=== PATIENT | female | born 1935 | race Caucasian/White ===

== ENCOUNTER 2018-05-08 09:02 | Inpatient (IN) | payer OTHER, MEDICARE ==
--- NOTE | ~2018-05-08 | EKG ---
[address] [address] ELECTROCARDIOGRAM REPORT Name: MERARY VAUGHN Room #: 429-[facility] IN M.R.#: [id number] Admission: 05/08/18 Attend Phys: Sahil Clarke MD Discharge: 05/13/18 Date of : 31 Report #: [id number] THIS REPORT FOR: //name// [facility] Test Date: 2018-05-09 Test Time: 12:48:39 Pat Name: MERARY VAUGHN Department: Room: 429 Gender: F Roll Scale Man: BS : 1935 Requested By: Sarthak Dejesus Order Number: [id number] MD: Pablo Bishop Measurements Intervals [place] Rate: 84 P: 19 NH: 123 QRS: -33 QRSD: 91 T: 17 QT: 416 QTc: 492 Interpretive Statements Sinus rhythm Left axis deviation Low voltage, extremity and precordial leads No previous ECG available for comparison Electronically Signed On 05-16-2018 14:14:06 CDT by Pablo Bishop [email or web address] <ELECTRONICALLY SIGNED> By: Pablo Bishop MD 05/16/18 1414 1248 1248 Pablo Bishop MD /LOGAN
--- NOTE | ~2018-05-08 | P ---
[facility] [place] [address] PROCEDURE REPORT Name: MERARY VAUGHN Room #: 429-P ADM IN M.R.#: [id number] Admission: 05/08/18 Attend Phys: Sahil Clarke MD Discharge: Date of : 31 Report #: [id number] THIS REPORT FOR: //name// CC: Sahil PENNY unknown DATE OF SERVICE: 05/12/2018 PROCEDURE PERFORMED: ERCP with sphincterotomy and stone removal. HISTORY OF PRESENT ILLNESS: The patient is an 82-year-old female who was admitted for abdominal pain. She has a history of significant Alzheimer's dementia. Ultrasound showed cholelithiasis with mild gallbladder and extrahepatic bile duct dilation. The patient underwent an MRCP on 05/09/2018, which showed multiple filling defects within the common bile duct suggesting duct stones. The patient's liver function tests today, AST 43, total bili is 0.8, although it was 1.1 on May 09, alkaline phosphatase 318, ALT is 93. Her white blood cell count is 11.1, hemoglobin 9.0. The patient is currently on Zosyn as well as other medications. Plan is for ERCP. PROCEDURE: The risks and benefits of the procedure were explained to the patient's , those risks including, but not limited to bleeding, perforation, the risk of sedation as well as a potential risk for post-ERCP pancreatitis. He understood these risks and gave informed consent. The procedure was performed under general anesthesia in the interventional radiology suite. The patient again is already on IV Zosyn at this time. She was also given 150 mg indomethacin rectal suppository prior to the procedure. Next, using a standard Olympus ERCP side-viewing scope, the scope was placed in the patient's mouth and advanced under direct vision through the esophagus, stomach and into the second portion of the duodenum. The major papilla was identified, which was normal; however, it was next to a large duodenal diverticulum. Next, using a Cesar-Cook 0.025 dome-tipped sphincterotome, initially the pancreatic duct was cannulated. Next, the common bile duct was cannulated. There were several small filling defects noted. The common bile duct was dilated to approximately 10-11 mm. Initially, the intra-hepatics did not fill. At this point, a guidewire was advanced into the intrahepatic ducts. Next, I performed a large sphincterotomy without difficulty. The sphincterotome was then removed and a balloon catheter was then advanced over the wire into the common bile duct. A balloon occlusion cholangiogram did show filling defects within the mid to distal common bile duct. Next, multiple sweeps were performed. On the first balloon sweep, several stones with a large amount of debris were removed; on subsequent sweeps, no further stones or significant debris was removed afterwards. After several balloon sweeps, we then obtained another balloon occlusion cholangiogram, intra-hepatics appeared normal, the cystic duct did [address] [address] PROCEDURE REPORT Name: MERARY VAUGHN Room #: 429-P [facility] IN M.R.#: [id number] Admission: 05/08/18 Attend Phys: Sahil Clarke MD Discharge: Date of : 31 Report #: [id number] fill, the common bile duct showed no further filling defects at this point. At this point, the wire and the balloon were removed. The scope was then withdrawn and the procedure terminated. The patient tolerated the procedure well. IMPRESSION: 1. Common bile duct stone, status post ERCP with sphincterotomy and stone and debris removal today as described above. 2. Duodenal diverticulum. RECOMMENDATIONS: 1. Observe the patient post procedure. 2. Continue to monitor liver function tests. Thank you for allowing me to participate in her care. <ELECTRONICALLY SIGNED> By: Boris Goodson MD 05/12/18 1725 1235 1313 Boris Goodson MD /nt
[2018-05-08 17:08] VITALS: BP 162/90
[2018-05-08 19:42] VITALS: BP 179/97
[2018-05-09 01:52] VITALS: BP 118/74
[2018-05-09 04:59] VITALS: BP 135/104
[2018-05-09 06:20] LABS: ABSOLUTE NEUTROPHILS 9.3 thou/uL (1.4-8.2); BASOPHILS 0.3 % (0.0-2.0); EOSINOPHILS 0.8 % (0.0-3.0); HEMATOCRIT 28.9 % (37.0-47.0); HEMOGLOBIN 9.3 gm/dL (12.0-15.0); LYMPHOCYTES 6.8 % (24.0-44.0); MCH 26.6 pg (26.0-34.0); MCV 83.1 fL (80.0-100.0); PLATELET COUNT 485 thou/uL (150-400); POLYS 87.1 % (36.0-66.0); RBC 3.48 mil/uL (4.20-5.00); RDW 21.2 % (10.5-14.5); WBC 10.7 thou/uL (4.0-11.0)
[2018-05-09 06:35] LABS: ALBUMIN 2.2 g/dL (3.4-5.0); CALCIUM 8.4 mg/dL (8.5-10.1); CREATININE 0.8 mg/dL (0.6-1.0); MAGNESIUM 2.1 mg/dL (1.8-2.4); POTASSIUM 3.6 mmol/L (3.5-5.1); TOTAL BILIRUBIN 1.1 mg/dL (<0.1-1.0); TOTAL PROTEIN 6.6 g/dL (6.4-8.2)
[2018-05-09 07:13] VITALS: BP 159/87
[2018-05-09 07:38] LABS: ANISOCYTOSIS 1+; HYPOCHROMASIA SLIGHT; POIKILOCYTOSIS SLIGHT; POLYCHROMASIA SLIGHT
[2018-05-09 07:39] LABS: PLATELET ESTIMATE INCREASED
[2018-05-09] MEDS ORDERED: FERROUS SULFAT325 MG PO (08:16)
[2018-05-09] MEDS ORDERED: MIRALAX17 GM PO (08:18)
[2018-05-09] MEDS ORDERED: MILK OF MA2400 MG/10 PO (08:18)
[2018-05-09] MEDS ORDERED: NEURONTIN 400400 M1 PO (08:20)
[2018-05-09] MEDS ORDERED: EVAC-U-GEN8.6 MG PO (08:20)
[2018-05-09] MEDS ORDERED: TYLENOL325 MG PO (08:21)
[2018-05-09] MEDS ORDERED: TYLENOL EXTRA500 MG PO (08:21)
[2018-05-09 15:43] VITALS: BP 162/132
[2018-05-09 21:00] VITALS: BP 168/83
[2018-05-10 04:21] VITALS: BP 135/103
[2018-05-10 06:28] LABS: ABSOLUTE NEUTROPHILS 8.8 thou/uL (1.4-8.2); BASOPHILS 0.5 % (0.0-2.0); EOSINOPHILS 0.5 % (0.0-3.0); HEMATOCRIT 29.1 % (37.0-47.0); HEMOGLOBIN 9.3 gm/dL (12.0-15.0); LYMPHOCYTES 7.6 % (24.0-44.0); MCH 26.5 pg (26.0-34.0); MCV 82.6 fL (80.0-100.0); MONOCYTES 5.2 % (1.0-8.0); PLATELET COUNT 534 thou/uL (150-400); POLYS 86.2 % (36.0-66.0); RBC 3.52 mil/uL (4.20-5.00); RDW 21.1 % (10.5-14.5); WBC 10.2 thou/uL (4.0-11.0)
[2018-05-10 06:37] LABS: CALCIUM 8.1 mg/dL (8.5-10.1); CREATININE 0.7 mg/dL (0.6-1.0); POTASSIUM 3.4 mmol/L (3.5-5.1)
[2018-05-10 07:45] VITALS: BP 107/83
[2018-05-10 09:50] LABS: ALBUMIN 2.1 g/dL (3.4-5.0); CREATININE 0.7 mg/dL (0.6-1.0); POTASSIUM 3.3 mmol/L (3.5-5.1); TOTAL BILIRUBIN 0.7 mg/dL (<0.1-1.0); TOTAL PROTEIN 6.3 g/dL (6.4-8.2)
[2018-05-10 16:00] VITALS: BP 177/122
[2018-05-10 20:00] VITALS: BP 166/92
[2018-05-11 05:00] VITALS: BP 187/117
[2018-05-11 06:20] LABS: ABSOLUTE NEUTROPHILS 9.9 thou/uL (1.4-8.2); BASOPHILS 0.3 % (0.0-2.0); EOSINOPHILS 0.3 % (0.0-3.0); HEMATOCRIT 30.5 % (37.0-47.0); HEMOGLOBIN 9.6 gm/dL (12.0-15.0); LYMPHOCYTES 6.6 % (24.0-44.0); MCH 25.8 pg (26.0-34.0); MCHC 31.5 g/dL (28.0-37.0); MCV 81.9 fL (80.0-100.0); MONOCYTES 6.8 % (1.0-8.0); PLATELET COUNT 569 thou/uL (150-400); RBC 3.72 mil/uL (4.20-5.00); RDW 21.2 % (10.5-14.5); WBC 11.5 thou/uL (4.0-11.0)
[2018-05-11 06:36] LABS: CALCIUM 8.2 mg/dL (8.5-10.1); CREATININE 0.7 mg/dL (0.6-1.0); POTASSIUM 3.1 mmol/L (3.5-5.1)
[2018-05-11 07:24] VITALS: BP 151/78
[2018-05-11 08:52] LABS: ALBUMIN 2.4 g/dL (3.4-5.0); DIRECT BILIRUBIN 0.4 mg/dL (<0.1-0.3); TOTAL BILIRUBIN 0.8 mg/dL (<0.1-1.0); TOTAL PROTEIN 7.1 g/dL (6.4-8.2)
[2018-05-11 16:26] VITALS: BP 149/70
[2018-05-11 18:38] LABS: URINE BILIRUBIN NEGATIVE (Negative); URINE BLOOD 2+ (Negative); URINE CLARITY CLEAR; URINE COLOR YELLOW; URINE GLUCOSE-RANDOM* NEGATIVE (Negative); URINE KETONES 2+ (Negative); URINE LEUKOCYTES-REFLEX NEGATIVE (Negative); URINE NITRITE-REFLEX NEGATIVE (Negative); URINE PROTEIN (DIPSTICK) TRACE (Negative); URINE SPECIFIC GRAVITY 1.025 (1.005-1.035); URINE UROBILINOGEN 0.2 E.U./dl (0.2-1.0)
[2018-05-11 18:48] LABS: CASTS None Seen /LPF (None Seen); SQUAMOUS 0-3 Few /LPF (0-3); URINE WBC-REFLEX None Seen /HPF (0-5)
[2018-05-11 18:49] LABS: BACTERIA-REFLEX None Seen /HPF (None Seen); CRYSTALS None Seen /LPF (None Seen); URINE RBC 3-10 Few /HPF (0-2)
[2018-05-11 19:32] VITALS: BP 149/72
[2018-05-12 04:13] VITALS: BP 154/87
[2018-05-12 07:12] LABS: ABSOLUTE NEUTROPHILS 9.9 thou/uL (1.4-8.2); BASOPHILS 0.3 % (0.0-2.0); EOSINOPHILS 0.4 % (0.0-3.0); HEMATOCRIT 27.9 % (37.0-47.0); LYMPHOCYTES 4.8 % (24.0-44.0); MCH 26.6 pg (26.0-34.0); MCHC 32.4 g/dL (28.0-37.0); MCV 82.2 fL (80.0-100.0); MONOCYTES 5.6 % (1.0-8.0); PLATELET COUNT 553 thou/uL (150-400); POLYS 88.9 % (36.0-66.0); RDW 21.3 % (10.5-14.5); WBC 11.1 thou/uL (4.0-11.0)
[2018-05-12 07:24] LABS: ALBUMIN 2.3 g/dL (3.4-5.0); CALCIUM 7.9 mg/dL (8.5-10.1); CREATININE 0.6 mg/dL (0.6-1.0); TOTAL BILIRUBIN 0.8 mg/dL (<0.1-1.0); TOTAL PROTEIN 6.7 g/dL (6.4-8.2)
[2018-05-12 07:32] LABS: POTASSIUM 2.8 mmol/L (3.5-5.1)
[2018-05-12 08:10] VITALS: BP 150/75
[2018-05-12 20:25] VITALS: BP 152/74
[2018-05-13 04:20] VITALS: BP 142/95
[2018-05-13 06:33] LABS: ABSOLUTE NEUTROPHILS 7.7 thou/uL (1.4-8.2); BASOPHILS 0.2 % (0.0-2.0); HEMATOCRIT 27.7 % (37.0-47.0); HEMOGLOBIN 8.9 gm/dL (12.0-15.0); LYMPHOCYTES 8.2 % (24.0-44.0); MCH 26.5 pg (26.0-34.0); MCHC 32.1 g/dL (28.0-37.0); MCV 82.7 fL (80.0-100.0); MONOCYTES 5.6 % (1.0-8.0); PLATELET COUNT 539 thou/uL (150-400); RBC 3.35 mil/uL (4.20-5.00); RDW 20.5 % (10.5-14.5)
[2018-05-13 06:52] LABS: ALBUMIN 2.2 g/dL (3.4-5.0); CALCIUM 8.1 mg/dL (8.5-10.1); CREATININE 0.6 mg/dL (0.6-1.0); POTASSIUM 3.6 mmol/L (3.5-5.1); TOTAL BILIRUBIN 0.6 mg/dL (<0.1-1.0); TOTAL PROTEIN 6.6 g/dL (6.4-8.2)
[2018-05-13 07:31] VITALS: BP 127/57
[2018-05-13 07:36] LABS: ANISOCYTOSIS 2+; HYPOCHROMASIA 1+
[2018-05-13 07:37] LABS: POLYCHROMASIA OCCASIONAL
[2018-05-13] MEDS ORDERED: IPRAT-ALBUT 0.5-3 ML INH (13:36)
[2018-05-13] MEDS ORDERED: AUGMENTIN400 MG/53 PO (13:36)
== END 2018-05-13 17:34 | DRG 177 ==
LOC: 4E 09:02
PROVIDERS: Family Medicine; Hospitalist; Nurse Practitioner; Surgery
PROC: 0FC98ZZ Extirpation of Matter from Common Bile Duct, Via Natural or Artificial Opening Endoscopic (ICD-10-PCS; principal; 2018-05-12)
PROC: 0F798ZZ Dilation of Common Bile Duct, Via Natural or Artificial Opening Endoscopic (ICD-10-PCS; principal; 2018-05-12)
DX: J69.0 Pneumonitis due to inhalation of food and vomit (principal); E43 Unspecified severe protein-calorie malnutrition; K80.71 Calculus of gallbladder and bile duct without cholecystitis with obstruction; J98.11 Atelectasis; G30.9 Alzheimer's disease, unspecified; F02.80 Dementia in other diseases classified elsewhere, unspecified severity, without behavioral disturbance, psychotic disturbance, mood disturbance, and anxiety; K57.10 Diverticulosis of small intestine without perforation or abscess without bleeding; F32.9 Major depressive disorder, single episode, unspecified; E87.6 Hypokalemia; E83.42 Hypomagnesemia; I50.9 Heart failure, unspecified; K21.9 Gastro-esophageal reflux disease without esophagitis; D64.9 Anemia, unspecified; M81.0 Age-related osteoporosis without current pathological fracture; H40.9 Unspecified glaucoma; M19.90 Unspecified osteoarthritis, unspecified site; K59.00 Constipation, unspecified; Z79.899 Other long term (current) drug therapy; Z74.01 Bed confinement status; Z88.8 Allergy status to other drugs, medicaments and biological substances
CPT/HCPCS: 10783; 62110; 62900; 70005